=== PATIENT | female | born 1990 | race Two or more races ===

== ENCOUNTER 2024-01-25 10:05 | Emergency (ER) | payer OTHER ==
--- NOTE | 2024-01-25 11:40 | ED Physician Documentation ---
PD HPI HEENT - Stated complaint Stated Complaint: LT EAR PX - Chief complaint Chief Complaint: Heent - History obtained from History obtained from: Patient - Additional information Additional information: Patient is a 33-year-old female presenting for evaluation of left ear pain that is been present for the last 3 weeks. She occasionally uses Q-tips as well as a silicone cleaning tool in her ear.Few days. She reports seeing a little bit of brownish discoloration on the toilet which made her concerned for blood. She has had URI symptoms for the past 1 week And had lost her voice but that is imp roving. She does feel the URI symptoms are improving. She has not tried any medications for her symptoms. Review of Systems Constitutional: denies: Fever Ears: reports: Ear pain Respiratory: denies: Cough GI: denies: Vomiting Neurologic: denies: Headache PD PAST MEDICAL HISTORY - Past Medical History Past Medical History: Yes Psych: Depression, Anxiety, ADD/ADHD - Past Surgical History Past Surgical History: No - Present Medications Home Medications: Ambulatory Orders Medication Instructions Recorded Confirmed Amox/Clav 875/125 [Augmentin] 1 each PO Q12H #14 tablet 01/25/24 Fluticasone [Flonase] 1 sprays AISLINN BID #16 gm 01/25/24 Sertraline HCl 100 mg PO DAILY 01/25/24 01/25/24 cloNIDine [Catapres] 0.1 mg PO ONCE 01/25/24 01/25/24 lamoTRIgine [Lamictal Xr] 50 mg PO DAILY 01/25/24 01/25/24 - Allergies Allergies/Adverse Reactions: Allergies Allergy/AdvReac Type Severity Reaction Status Date / Time No Known Drug Allergies Allergy Verified 01/25/24 10:25 - Social History Does the pt smoke?: No Smoking Status: Never smoker Does the pt drink ETOH?: No Does the pt have substance abuse?: No - Immunizations Immunizations are current?: Yes PD ED PE NORMAL - General General: Alert and oriented X 3, No acute distress, Well developed/nourished - HEENT HEENT: Atraumatic, Moist mucous membranes, Other (Right TM is intact and clear, left TM is dull, cloudy, bulging; No abnormal drainage in either your canals) - Neck Neck: Supple, no meningeal sign - Respiratory Respiratory: No respiratory distress - Derm Derm: Warm and dry Results - Vitals Vitals: Vital Signs - 24 hr 01/25/24 01/25/24 10:20 12:17 Temperature 36.7 C 36.7 C Heart Rate 96 94 Respiratory 16 18 Rate Blood Pressure 166/105 H 151/94 H O2 Saturation 100 97 PD Medical Decision Making - ED course ED course: Patient presenting for evaluation of left ear pain. On exam appears to have signs of otitis media with no signs of foreign body. TM is intact. Will start on course of antibiotics. Vital signs are stable. Patient counseled on treatment plan as well as concerning symptoms to return for. Patient also advised to avoid using any tools such as Q-tips or ear cleaning devices in the ear canals. Departure - Departure Disposition: 01 Home, Self Care Clinical Impression: Left otitis media Condition: Stable Instructions: ED Otitis Media Acute Adult Prescriptions: Amox/Clav 875/125 [Augmentin] 1 each PO Q12H #14 tablet Fluticasone [Flonase] 1 sprays AISLINN BID #16 gm Comments: You have an Ear infection on the left ear. I have sent prescriptions for an antibiotic as well as a nasal decongestant to [facility] in [place]. Please make sure to complete the course of the antibiotic. I would not recommend using Q-tips or other devices to clean out ears. I would recommend follow-up with primary care or ENT if you are having recurrent issues with earwax. Return to the ER with any worsening. Forms: PCP List Discharge Date/Time: 01/25/24 12:19
[2024-01-25 12:22] VITALS: BP 151/94; O2SAT 97
== END 2024-01-25 12:19 | disposition home or self-care (01) ==
LOC: ED 10:05
DX: H66.92 Otitis media, unspecified, left ear (principal)
CPT/HCPCS: 99282; 99283